=== PATIENT | male | born 1975 | race Caucasian/White ===

== ENCOUNTER 2020-01-15 22:03 | Emergency (ER) | payer MEDICAID ==
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
--- NOTE | 2020-01-15 22:50 | CRLCT ---
INDICATION: Change in mental status TECHNIQUE: CT head without contrast. COMPARISON: None FINDINGS: CSF spaces: Within normal limits for age. Brain parenchyma: The vaz-white differentiation is normal. No sign of mass, hemorrhage, or midline shift. Skull base and calvarium: The visualized paranasal sinuses and mastoid air cells demonstrate no acute or significant findings. The visualized orbits are grossly unremarkable. No skull fractures. IMPRESSION: Unremarkable noncontrast head CT. Dictated by Giancarlo Murrell MD @ 01/15/2020 10:49:59 PM Please note that all CT scans at this facility use dose modulation, iterative reconstruction, and/or weight-based dosing when appropriate to reduce radiation dose to as low as reasonably achievable. Dictated by: Giancarlo Murrell MD @ 01/15/2020 22:50:09 (Electronically Signed)
== END 2020-01-15 23:34 ==
LOC: JP.ED 22:03
DX: S80.812A Abrasion, left lower leg, initial encounter (principal); S21.102A Unspecified open wound of left front wall of thorax without penetration into thoracic cavity, initial encounter; F23 Brief psychotic disorder; X58.XXXA Exposure to other specified factors, initial encounter
CPT/HCPCS: 36415; 70450; 80053; 80305-QW; 81001; 85025; 99285-25